=== PATIENT | male | born 1945 | race Caucasian/White ===

== ENCOUNTER → 2019-02-15 | Outpatient (CLI) | payer MEDICARE ==
[~2019-02-15] MED LIST: CEPH500C PO; HCT25T PO; IBUP-792 PO; OMEP-10 PO; RT-ALBUTEROL SULF 2.5 MG/3 ML PRE-MIX VIAL INH ONE; RT-ALBUTEROL SULF 2.5 MG/3 ML PRE-MIX VIAL ONE; TRM50T PO
== END ==
LOC: RT 08:06
PROVIDERS: ATTEND Physician Assistant
DX: R06.02 Shortness of breath (principal); Z87.891 Personal history of nicotine dependence
CPT/HCPCS: 94060; 94726; 94729

== ENCOUNTER → 2020-09-16 | Outpatient (CLI) | payer MEDICARE ==
[~2020-09-16] MED LIST changes: -RT-ALBUTEROL SULF 2.5 MG/3 ML PRE-MIX VIAL INH ONE; -RT-ALBUTEROL SULF 2.5 MG/3 ML PRE-MIX VIAL ONE
--- NOTE | 2020-09-16 13:32 | Diagnostic Imaging Report ---
INDICATION: Screening for abdominal aortic aneurysm. Patient does have a family history of abdominal aortic aneurysm. FINDINGS: The proximal abdominal aorta measures 2.4 cm AP x 2.9 cm transverse. The mid abdominal aorta measures 2.5 cm AP x 2.7 cm transverse. The distal abdominal aorta measures 1.7 cm AP x 2.2 cm transverse. The iliacs are somewhat difficult to visualize. IMPRESSION: No evidence of abdominal aortic aneurysm. Dictated by: Dictated on workstation # [id number]
== END ==
LOC: RAD 08:00
PROVIDERS: ATTEND Internal Medicine
DX: I71.4 Abdominal aortic aneurysm, without rupture (principal)
CPT/HCPCS: 76775